=== PATIENT | male | born 1995 ===

== ENCOUNTER 2024-04-09 03:24 | Emergency (ER) | payer SELFPAY ==
[2024-04-09] MEDS: Cefdinir 300 MG Cap PO ONE (03:49)
== END 2024-04-09 03:58 ==
LOC: MW.ED 03:24
DX: K08.89 Other specified disorders of teeth and supporting structures (principal); K02.9 Dental caries, unspecified; F10.90 Alcohol use, unspecified, uncomplicated; Z88.0 Allergy status to penicillin
CPT/HCPCS: 99283; A9270